=== PATIENT | female | born 1980 | race Caucasian/White ===

== ENCOUNTER 2018-05-15 00:52 | Emergency (ER) | payer MEDICAID ==
[~2018-05-15] VITALS: Ht 177.8 cm; Wt 61.2 kg
[2018-05-15 01:15] VITALS: BP 99/51
--- NOTE | 2018-05-15 01:15 | NUR ---
ER Nurse Note: Pt came from home c/o of ear pain for 2 days; 6/10 pain. Pt sated she felt dizzy when she turns her head left to right and hears a "whooshing" sound in her left ear. Pt denies trauma or loud noises, recent travels. Hearing intact bilaterally; ERMD at pt side; will continue to motnior.
[2018-05-15 01:50] VITALS: BP 102/58
--- NOTE | 2018-05-15 01:50 | NUR ---
ER Nurse Note: Patient seen, treated, medically cleared for discharged from medical care. Discharge instructions and prescriptions given with repeat verbalization from pt. Instructed pt to follow up with primary care physican within one week. Pt awake, alert and oriented x4. All medical devices such as ID band were removed. Patient ambulated out with all personal belongings with steady gait.
--- NOTE | 2018-05-15 03:19 | Emergency Room Report ---
History of Present Illness General Chief Complaint: Earache Source: Patient Present Illness HPI Patient presents emergency department today complaining of ringing in the left ear with a swishing sound. She states that's been going on for one day. Patient's never had episodes of this before. She denies any headache neck pain chest pain shortness of breath. Denies any loss of hearing. Denies any trauma. Denies any cough runny nose or sore throat. No other complaints are noted. Patient denies flying recently. Denies taking any medications.No other modifying factors. No other associated signs and symptoms. No other complaints were noted. Allergies: Coded Allergies: No Known Allergies (Unverified , 05/15/18) Patient History Past Medical History: none Past Surgical History: none Pertinent Family History: none Social History: Denies: smoking, alcohol use, drug use Last Menstrual Period: 05/12/2017 Now: No : 0 Para: 0 Reviewed Nursing Documentation: PMH: Agreed; PSxH: Agreed Nursing Documentation-PMH Past Medical History: No Stated History Review of Systems All Other Systems: negative except mentioned in HPI Physical Exam Vital Signs Date Time Temp Pulse Resp B/P (MAP) Pulse Ox O2 Delivery O2 Flow Rate FiO2 05/15/18 01:05 98.1 80 16 99/51 97 Room Air Sp02 EP Interpretation: reviewed, normal General Appearance: normal inspection, well appearing, no apparent distress, alert Head: atraumatic Eyes: bilateral eye normal inspection ENT: normal ENT inspection, hearing grossly normal, normal voice Neck: normal inspection, full range of motion, supple, no bony tend Respiratory: normal inspection, lungs clear, normal breath sounds, no respiratory distress, no retraction, no wheezing Cardiovascular #1: regular rate, rhythm, no edema Gastrointestinal: normal inspection, normal bowel sounds, non tender, soft, no guarding, no hernia Genitourinary: no CVA tenderness Musculoskeletal: normal inspection, back normal, normal range of motion Neurologic: normal inspection, alert, responsive, speech normal Psychiatric: normal inspection, judgement/insight normal, mood/affect normal Skin: normal inspection, normal color, no rash Medical Decision Making Diagnostic Impression: Primary Impression: Left-sided tinnitus ER Course Patient presents emergency department today complaining of ringing in her left ear. Differential considerations include tinnitus, otitis media, otitis externa , sinus infection just name a few. Patient's counseling benign. Given patient had benign exam and this is only been going on for one day recommend taking some Benadryl. Recommend outpatient follow-up with ENT.Patient is advised to follow up with primary doctor in 2-3 days and return the emergency room for any worsening symptoms and as needed. Last Vital Signs Date Time Temp Pulse Resp B/P (MAP) Pulse Ox O2 Delivery O2 Flow Rate FiO2 05/15/18 01:50 98.1 68 16 102/58 97 Room Air Status: improved Disposition: HOME, SELF-CARE Condition: Stable Scripts No Active Prescriptions or Reported Meds Referrals: Robert Núñez MD NON PHYSICIAN (PCP) Patient Instructions: Bala Talamantes MD May 15, 2018 03:19
== END 2018-05-15 02:30 | disposition home or self-care (01) ==
LOC: EMR 02:21
DX: H93.12 Tinnitus, left ear (principal)
CPT/HCPCS: 99282